=== PATIENT | female | born 1955 | race Caucasian/White ===

== ENCOUNTER 2023-10-21 15:11 | Observation (INO) | payer MEDICARE, OTHER ==
--- NOTE | 2023-10-21 15:49 | ERPHSYRPT ---
- History of Present Illness Time Seen by Provider: 10/21/23 15:30 Source: patient Exam Limitations: no limitations Physician History: Patient here for evaluation of syncope paramedics were called to the scene and she was noted to be weak and had a syncopal episodes and route to [facility] she was then brought here for evaluation, She denies any other complaints at this time Witnessed: other (paramedics) Prior Episodes: single episode today Timing/Duration: today Precipitating Factors: none Context: sitting Loss of Consciousness: brief (seconds) Allergies/Adverse Reactions: acetaminophen [From Vicodin] Allergy (Verified 10/21/23 15:42) hydrocodone [From Vicodin] Allergy (Verified 10/21/23 15:42) - Past Medical History Pertinent Past Medical History: Yes Neurological History: No Pertinent History ENT History: No Pertinent History Cardiac History: Coronary Artery Disease, High Cholesterol, Hypertension, Myocardial Infarction ([place]) Respiratory History: No Pertinent History Endocrine Medical History: No Pertinent History Musculoskeletal History: No Pertinent History - Past Surgical History Past Surgical History: Yes Cardiac: Cardiac Catheterization, Cardiac Stent Musculoskeletal: Orthopedic Surgery - Review of Systems Eyes: No Symptoms Ears, Nose, & Throat: No Symptoms Respiratory: No Symptoms Cardiac: Syncope Abdominal/Gastrointestinal: No Symptoms Genitourinary Symptoms: No Symptoms Musculoskeletal: No Symptoms Skin: No Symptoms Neurological: Dizziness Psychological: No Symptoms Endocrine: No Symptoms Hematologic/Lymphatic: No Symptoms Immunological/Allergic: No Symptoms All Other Systems: Reviewed and Negative Physical Exam - Nursing Vital Signs Nursing Vital Signs: Initial Vital Signs Pulse Rate 65 10/21/23 15:34 Respiratory Rate 23 10/21/23 15:34 Blood Pressure 136/70 10/21/23 15:34 O2 Sat by Pulse Oximetry 100 10/21/23 15:34 Pain Scale Pain Intensity 3 - [place] Coma Scale Best Eye Response ([place]): (2) open to pain Best Verbal Response ([place]): (4) confused conversation Best Motor Response ([place]): (6) obeys commands [place] Total: 12 - Physical Exam General Appearance: no apparent distress, lethargy Eye Exam: bilateral eye: normal inspection Ears, Nose, Throat Exam: normal ENT inspection Neck Exam: normal inspection Respiratory: normal breath sounds Cardiovascular: regular rate/rhythm Gastrointestinal: soft, normal bowel sounds Extremity Exam: normal inspection Mental Status: lethargy, unresponsive SpO2: 100 Ordered Tests: Active Orders 24 hr Category Date Time Status Cervical Collar Application STAT Care 10/21/23 15:14 Active CERVICAL SPINE WO CONTRAST [CT] Stat Exams 10/21/23 15:14 Completed CHEST 1 VIEW (PORTABLE) Stat Exams 10/21/23 15:47 Completed HEAD WITHOUT CONTRAST [CT] Stat Exams 10/21/23 15:12 Completed CBC W DIFF Stat Lab 10/21/23 18:00 Completed CMP Stat Lab 10/21/23 15:46 Completed ETHYL ALCOHOL Stat Lab 10/21/23 15:46 Completed TROPONIN Q4H Lab 10/21/23 18:00 Received TROPONIN Q4H Lab 10/21/23 22:00 Ordered UA W/RFX UR CULTURE Stat Lab 10/21/23 16:55 Completed Medication Summary Discontinued Medications Generic Name Dose Route Start Last Admin Trade Name Sriram PRN Reason Stop Dose Admin Sodium Chloride 1,000 mls @ 999 mls/hr 10/21/23 15:46 10/21/23 17:31 Sodium Chloride 0.9% 1000 Ml IV 10/21/23 16:46 Infused .Q1H1M STA Infusion Sodium Chloride Confirm 10/21/23 16:13 Sodium Chloride 0.9% 1000 Ml Administered 10/21/23 16:14 Dose 1,000 mls @ ud .ROUTE .STK-MED ONE Naloxone HCl 0.4 mg 10/21/23 15:46 10/21/23 16:12 Naloxone Hcl 0.4 Mg/Ml Ml IV 10/21/23 15:47 Not Given STAT ONE Lab/Rad Data: Laboratory Result Diagrams 10/21/23 18:00 10/21/23 15:46 Laboratory Results 10/21/23 10/21/23 10/21/23 Range/Units 18:00 16:55 15:46 WBC 11.4 H (3.98-10.04) x10^3/uL RBC 4.21 (3.93-5.22) x10^6/uL Hgb 13.2 (11.2-15.7) g/dL Hct 39.8 (34.1-44.9) % MCV 94.5 (79.4-94.8) fL MCH 31.4 (25.6-32.2) pg MCHC 33.2 (32.2-35.5) g/dL RDW 13.6 (11.7-14.4) % Plt Count 248 (182-369) x10^3/uL MPV 10.3 (9.4-12.3) fL Gran % 81.5 H (34.0-71.1) % Immature Gran % (Auto) 0.4 (0.001-0.429) % Nucleat RBC Rel Count 0.0 (0.00-0.2) % Eos # (Auto) 0.07 (0.04-0.36) x10^3/uL Immature Gran # (Auto) 0.04 H (0.001-0.031) x10^3u/L Absolute Lymphs (auto) 1.59 (1.18-3.74) x10^3/uL Absolute Monos (auto) 0.36 (0.24-0.86) x10^3/uL Absolute Nucleated RBC 0.00 (0.00-0.012) x10^3u/L Lymphocytes % 13.9 L (19.3-51.7) % Monocytes % 3.2 L (4.7-12.5) % Eosinophils % 0.6 L (0.7-5.8) % Basophils % 0.4 (0.1-1.2) % Absolute Granulocytes 9.31 H (1.56-6.13) x10^3/uL Basophils # 0.05 (0.01-0.08) x10^3/uL Sodium 139 (135-145) mmol/L Potassium 4.4 (3.5-5.1) mmol/L Chloride 110 H (98-107) mmol/L Carbon Dioxide 21 L (22-30) mmol/L Anion Gap 11.9 (5-15) MEQ/L BUN 22 H (7-17) mg/dL Creatinine 0.85 (0.52-1.04) mg/dL Estimated GFR 75.5 ML/MIN Glucose 110 H (74-106) mg/dL Calcium 9.8 (8.4-10.2) mg/dL Total Bilirubin 0.70 (0.2-1.3) mg/dL AST 37 H (14-36) U/L ALT 21 (0-35) U/L Alkaline Phosphatase 121 (38-126) U/L Serum Total Protein 7.3 (6.3-8.2) g/dL Albumin 4.1 (3.5-5.0) g/dL Urine Color Yellow (Yellow) Urine Appearance Clear (Clear) Urine pH 7.0 (4.6-8.0) Ur Specific [place] 1.015 (1.005-1.030) Urine Protein Trace A (Negative) Urine Glucose (UA) Negative (Negative) mg/dL Urine Ketones 15 A (Negative) Urine Blood Negative (Negative) Urine Nitrite Negative (Negative) Urine Bilirubin Negative (Negative) Urine Urobilinogen 0.2 (0.2) mg/dL Ur Leukocyte Esterase Negative (Negative) U Hyaline Cast (Auto) NONE SEEN (0-2) /LPF Urine Microscopic RBC 0-2 (0-5) /HPF Urine Microscopic WBC 0-2 (0-5) /HPF Ur Epithelial Cells None Seen (None Seen) /HPF Urine Bacteria None Seen (None Seen) /HPF Urine Culture Reflexed NO (NO) Ethyl Alcohol < 10 (0-10) mg/dL - Progress Progress Note: Patient was seen and evaluated for syncope she was brought here via ambulance she was taken straight back for head CT and CT C-spine. these were within normal limits labs were drawn she was given IV fluids. she was observed and returned back to baseline. Patient was informed of the need for admission for further observation she is agreeable she has no further questions at this time I spoke to the hospitalist who will admit the patient he was updated with the patient's lab results and CT results he was informed that the patient did use some marijuana prior to this episode and this might be related to her drug use however the patient denies any active complaints at this time 10/21/23 18:26 Medical Desision Making - Discussion of managment Care discussed with:: hospitalist Agreed on:: decision to admit, place in obs - Departure Departure Disposition: Observation Clinical Impression: Syncope Condition: Stable Critical Care Time: Yes Critical Care Time(excluding separately billable procedures): Critical 30-74 mins
[2023-10-21] MEDS: Narcan 0.4 MG/ML IV ONE (16:12)
[2023-10-21] MEDS ORDERED: Sodium Chloride 0.9% 1000 ML 1,000 ML ONE (16:13)
[2023-10-21 16:14] LABS: ALBUMIN 4.1 g/dL (3.5-5.0); ALKALINE PHOSPHATASE 121 U/L (38-126); ANION GAP 11.9 MEQ/L (5-15); BLOOD UREA NITROGEN 22 mg/dL (7-17); CHLORIDE 110 mmol/L (98-107); Calcium 9.8 mg/dL (8.4-10.2); Carbon Dioxide 21 mmol/L (22-30); Creatinine 1 0.85 mg/dL (0.52-1.04); EST GLOMERULAR FILTRATION RATE 75.5 ML/MIN; ETHYL ALCOHOL < 10 mg/dL (0-10); Glucose 110 mg/dL (74-106); Potassium 4.4 mmol/L (3.5-5.1); SGOT/AST 37 U/L (14-36); SGPT/ALT 21 U/L (0-35); SODIUM 139 mmol/L (135-145); Total Protein 7.3 g/dL (6.3-8.2)
[2023-10-21] MEDS: Sodium Chloride 0.9% 1000 ML 1,000 ML IV STA (16:21)
--- NOTE | 2023-10-21 16:25 | XRAY ---
Indication: Syncope. Status post fall. Multiple contiguous images obtained through the head without contrast. Comparison: None Global atrophy out of proportion to patient's age. No acute intracranial hemorrhage, abnormal extra-axial fluid collection, or mass effect. Fourth ventricle is midline without hydrocephalus. [place]-white matter to fissuration preserved. Bony calvarium intact. Visualized paranasal sinuses and mastoid air cells are clear. Impression: Global atrophy out of proportion to patient's age either developmental, metabolic, or nutritional in etiology. No acute intracranial abnormalities.
--- NOTE | 2023-10-21 16:25 | XRAY ---
Indication: Chest pain. Comparison: None Portable chest demonstrates normal heart and lungs. Bony thorax demonstrates osteopenia, mild degenerative changes, and nondisplaced healing lateral left 6 rib fracture.
--- NOTE | 2023-10-21 16:29 | XRAY ---
Indication: Syncope. Status post fall. Multiple contiguous axial images obtained through the cervical spine. Sagittal and coronal reformatted images obtained. Comparison: None Axial images negative for acute fracture, suspicious bony lesions, or spinal canal stenosis. Mild C5-C7 degenerative endplate spurring. Mild degenerative changes left T1 costovertebral articulation. Sagittal and coronal reformatted images demonstrates patient rotated to the right. Normal cervical lordosis. Mild C5-C7 disc space narrowing. No acute compression fracture, supposition, or jumped facet. Normal appearing craniocervical junction. Visualized noncontrasted soft tissues are unremarkable. Impression: C5-T1 degenerative changes. Negative acute fracture/subluxation.
[2023-10-21 17:13] LABS: Appearance Clear (Clear); Bacteria None Seen /HPF (None Seen); Bilirubin Negative (Negative); Blood Negative (Negative); Epithelial Cells None Seen /HPF (None Seen); Glucose, Urine Negative (Negative); Hyaline Casts NONE SEEN /LPF (0-2); Ketones 15 (Negative); Leukocyte Esterase Negative (Negative); Nitrite Negative (Negative); Protein,Urine Dip Trace (Negative); RBC 0-2 /HPF (0-5); Specific Gravity 1.015 (1.005-1.030); Urobilinogen 0.2 mg/dL (0.2); WBC 0-2 /HPF (0-5)
[2023-10-21 17:23] LABS: ADD URINE CULTURE? NO (NO)
[2023-10-21 18:02] LABS: Absolute Neutrophil Ct (ANC) 9.31 x10^3/uL (1.56-6.13); BASOPHIL % 0.4 % (0.1-1.2); Basophil (Absolute #) 0.05 x10^3/uL (0.01-0.08); Eosinophil % 0.6 % (0.7-5.8); Eosinophil (Absolute #) 0.07 x10^3/uL (0.04-0.36); Hematocrit 39.8 % (34.1-44.9); Hemoglobin 13.2 g/dL (11.2-15.7); IMMATURE GRAN # 0.04 x10^3u/L (0.001-0.031); IMMATURE GRAN % 0.4 % (0.001-0.429); Lymphocyte (Absolute #) 1.59 x10^3/uL (1.18-3.74); Lymphocytes % 13.9 % (19.3-51.7); Mean Cell Volume 94.5 fL (79.4-94.8); Mean Corpuscular Hemoglobin 31.4 pg (25.6-32.2); Mean Corpuscular Hgb Concent. 33.2 g/dL (32.2-35.5); Mean Platelet Volume 10.3 fL (9.4-12.3); Monocyte (Absolute #) 0.36 x10^3/uL (0.24-0.86); Monocytes % 3.2 % (4.7-12.5); Neutrophil % 81.5 % (34.0-71.1); Platelet Count 248 x10^3/uL (182-369); Red Blood Count 4.21 x10^6/uL (3.93-5.22); Red Cell Distribution Width 13.6 % (11.7-14.4); White Blood Count 11.4 x10^3/uL (3.98-10.04)
[2023-10-21 19:01] LABS: Amphetamine,Urine NEGATIVE (NEGATIVE); Barbiturate,Urine NEGATIVE (NEGATIVE); Benzodiazepine,Urine POSITIVE (NEGATIVE); Cocaine,Urine NEGATIVE (NEGATIVE); Methadone,Urine NEGATIVE (NEGATIVE); Opiate,Urine NEGATIVE (NEGATIVE); PCP,Urine NEGATIVE (NEGATIVE); THC,Urine POSITIVE (NEGATIVE)
[2023-10-21] MEDS ORDERED: Docusate Sodium 100 MG PO PRN (19:54)
[2023-10-21] MEDS ORDERED: Zofran 4 MG/2 ML VIAL IV PRN (19:55)
[2023-10-21] MEDS ORDERED: TYLENOL 325 MG PO PRN (19:55)
[2023-10-21] MEDS ORDERED: NON-FORMULARY ITEM (Atorvastatin Calcium [Atorvastatin Calcium] 20 MG Tablet) PO SCH (20:00)
[2023-10-21] MEDS: Sodium Chloride 0.9% 1000 ML 1,000 ML IV SCH (20:05)
--- NOTE | 2023-10-21 20:17 | PCM.HP ---
History of Present Illness - Chief Complaint Chief Complaint: NEAR SYNCOPE Date: 10/21/23 History of Present Illness: is a 68 year old female with a history of HTN (follows with Dr. Duane Chou) who presents with altered mental status and syncope, both of which resolved. The patient had used marijuana earlier today but this was not any different than other times, in terms of the type of product used. The patient were called to the scene for generalized weakness and syncopal episodes, and was witnessed by paramedics to have another episode in transit. The patient denies chest pain or any discomfort. She recently had a pneumonia treated one month ago. The ED workup was unremarkable but upon initial evaluation in the ED she was noted to be obtunded. The mental status changes subsequently resolved. At the time of my evaluation, she is oriented and comfortable. Her 2 sons are at bedside during my assessment. - Review of Systems Constitutional: Lethargy Eyes: No Symptoms Ears, Nose, & Throat: No Symptoms Respiratory: No Symptoms Cardiac: Syncope Abdominal/Gastrointestinal: No Symptoms Genitourinary Symptoms: No Symptoms Musculoskeletal: No Symptoms Skin: No Symptoms Neurological: No Symptoms Psychological: No Symptoms Endocrine: No Symptoms Hematologic/Lymphatic: No Symptoms Immunological/Allergic: No Symptoms All Other Systems: Reviewed and Negative Medications & Allergies Home Medications: Home Medication List ALPRAZolam 0.25 MG [xanAX 0.25 MG] 0.25 mg PO TID PRN 10/21/23 [History Confirmed 10/21/23] Atorvastatin Calcium 20 mg PO DAILY PRN 10/21/23 [History Confirmed 10/21/23] Calcium Carbonate/Vitamin D3 [Calcium 600-Vit D3 400 Tablet] 1 each PO DAILY 10/21/23 [History Confirmed 10/21/23] Carvedilol 3.125 mg [Coreg 3.125 MG] 3.125 mg PO BID 10/21/23 [History Confirmed 10/21/23] Clopidogrel Bisulfate [Clopidogrel] 75 mg PO DAILY 10/21/23 [History Confirmed 10/21/23] Docusate Sodium [Colace] 100 mg PO DAILY PRN PRN 10/21/23 [History Confirmed 10/21/23] Escitalopram Oxalate [Lexapro] 10 mg PO HS 10/21/23 [History Confirmed 10/21/23] Triamcinolone 0.1% Cream [Kenalog 0.1% Cream 15 gm] 15 gm TP BID 10/21/23 [History Confirmed 10/21/23] Ubidecarenone/Vit E Acet [Co Q-10 100 mg Softgel] 200 mg PO DAILY 10/21/23 [History Confirmed 10/21/23] terbinafine HCL [Terbinafine HCl] 250 mg PO HS 10/21/23 [History Confirmed 10/21/23] Allergies/Adverse Reactions: Allergies Allergy/AdvReac Type Severity Reaction Status Date / Time acetaminophen [From Vicodin] Allergy Verified 10/21/23 15:42 hydrocodone [From Vicodin] Allergy Verified 10/21/23 15:42 - Past Medical History Past Medical History: Yes Neurological History: No Pertinent History ENT History: No Pertinent History Cardiac History: Coronary Artery Disease, High Cholesterol, Hypertension, Myocardial Infarction ([place]) Respiratory History: No Pertinent History Endocrine Medical History: No Pertinent History Musculoskelatal History: No Pertinent History - Past Surgical History Past Surgical History: Yes Cardiac History: Cardiac Catheterization, Cardiac Stent Musculskeletal Surgical Hx: Orthopedic Surgery - Social History Smoking Status: Former smoker Exposure to second hand smoke: No Alcohol: Rarely Drug Use: marijuana - Social Determinants of Health Will the patient participate in the screening: Yes Do you worry about a steady place to live?: No Do you have any problems with any of the following?: No known problems In the past 12 months,have you had to go without utilities?: No Have you or anyone in your house had to go without enough: No Transportation Issues: No Has anyone in your support network made you feel unsafe?: No Does the patient want assistance with any of the above?: No - Physical Exam Vital Signs: Vital Signs - 24 hr Temp Pulse Resp BP BP Pulse Ox 10/21/23 19:42 96.4 F 78 16 136/70 100 10/21/23 18:28 100 10/21/23 16:53 70 21 161/72 95 10/21/23 16:52 70 18 98 10/21/23 16:50 79 23 10/21/23 16:40 78 21 94 L 10/21/23 16:30 74 15 98 10/21/23 16:22 75 18 92 L 10/21/23 15:34 65 23 136/70 100 General Appearance: no apparent distress, alert Neurologic Exam: alert, oriented x 3, cooperative, agriculture specialist II-XII nml as tested, normal mood/affect, nml cerebellar function Eye Exam: PERRL/EOMI, eyes nml inspection Ears, Nose, Throat Exam: normal ENT inspection Neck Exam: normal inspection, non-tender, supple, full range of motion Respiratory Exam: normal breath sounds, lungs clear Cardiovascular Exam: regular rate/rhythm, normal heart sounds Gastrointestinal/Abdomen Exam: soft, normal bowel sounds Back Exam: normal range of motion Extremity Exam: normal inspection, normal range of motion Skin Exam: normal color Results - Labs Lab/Micro Results: Lab Results-Last 24 Hours 10/21/23 10/21/23 10/21/23 Range/Units 15:46 16:55 18:00 WBC 11.4 H (3.98-10.04) x10^3/uL RBC 4.21 (3.93-5.22) x10^6/uL Hgb 13.2 (11.2-15.7) g/dL Hct 39.8 (34.1-44.9) % MCV 94.5 (79.4-94.8) fL MCH 31.4 (25.6-32.2) pg MCHC 33.2 (32.2-35.5) g/dL RDW 13.6 (11.7-14.4) % Plt Count 248 (182-369) x10^3/uL MPV 10.3 (9.4-12.3) fL Gran % 81.5 H (34.0-71.1) % Immature Gran % (Auto) 0.4 (0.001-0.429) % Nucleat RBC Rel Count 0.0 (0.00-0.2) % Eos # (Auto) 0.07 (0.04-0.36) x10^3/uL Immature Gran # (Auto) 0.04 H (0.001-0.031) x10^3u/L Absolute Lymphs (auto) 1.59 (1.18-3.74) x10^3/uL Absolute Monos (auto) 0.36 (0.24-0.86) x10^3/uL Absolute Nucleated RBC 0.00 (0.00-0.012) x10^3u/L Lymphocytes % 13.9 L (19.3-51.7) % Monocytes % 3.2 L (4.7-12.5) % Eosinophils % 0.6 L (0.7-5.8) % Basophils % 0.4 (0.1-1.2) % Absolute Granulocytes 9.31 H (1.56-6.13) x10^3/uL Basophils # 0.05 (0.01-0.08) x10^3/uL Sodium 139 (135-145) mmol/L Potassium 4.4 (3.5-5.1) mmol/L Chloride 110 H (98-107) mmol/L Carbon Dioxide 21 L (22-30) mmol/L Anion Gap 11.9 (5-15) MEQ/L BUN 22 H (7-17) mg/dL Creatinine 0.85 (0.52-1.04) mg/dL Estimated GFR 75.5 ML/MIN Glucose 110 H (74-106) mg/dL Calcium 9.8 (8.4-10.2) mg/dL Total Bilirubin 0.70 (0.2-1.3) mg/dL AST 37 H (14-36) U/L ALT 21 (0-35) U/L Alkaline Phosphatase 121 (38-126) U/L Troponin I (0.000-0.033) ng/mL Serum Total Protein 7.3 (6.3-8.2) g/dL Albumin 4.1 (3.5-5.0) g/dL Urine Color Yellow (Yellow) Urine Appearance Clear (Clear) Urine pH 7.0 (4.6-8.0) Ur Specific [place] 1.015 (1.005-1.030) Urine Protein Trace A (Negative) Urine Glucose (UA) Negative (Negative) mg/dL Urine Ketones 15 A (Negative) Urine Blood Negative (Negative) Urine Nitrite Negative (Negative) Urine Bilirubin Negative (Negative) Urine Urobilinogen 0.2 (0.2) mg/dL Ur Leukocyte Esterase Negative (Negative) U Hyaline Cast (Auto) NONE SEEN (0-2) /LPF Urine Microscopic RBC 0-2 (0-5) /HPF Urine Microscopic WBC 0-2 (0-5) /HPF Ur Epithelial Cells None Seen (None Seen) /HPF Urine Bacteria None Seen (None Seen) /HPF Urine Culture Reflexed NO (NO) Urine Opiates Level (NEGATIVE) Ur Methadone (NEGATIVE) Urine Barbiturates (NEGATIVE) Ur Phencyclidine (PCP) (NEGATIVE) Urine Amphetamine (NEGATIVE) U Benzodiazepine Level (NEGATIVE) Urine Cocaine (NEGATIVE) Urine Marijuana (THC) (NEGATIVE) Ethyl Alcohol < 10 (0-10) mg/dL 10/21/23 10/21/23 Range/Units 18:00 18:30 WBC (3.98-10.04) x10^3/uL RBC (3.93-5.22) x10^6/uL Hgb (11.2-15.7) g/dL Hct (34.1-44.9) % MCV (79.4-94.8) fL MCH (25.6-32.2) pg MCHC (32.2-35.5) g/dL RDW (11.7-14.4) % Plt Count (182-369) x10^3/uL MPV (9.4-12.3) fL Gran % (34.0-71.1) % Immature Gran % (Auto) (0.001-0.429) % Nucleat RBC Rel Count (0.00-0.2) % Eos # (Auto) (0.04-0.36) x10^3/uL Immature Gran # (Auto) (0.001-0.031) x10^3u/L Absolute Lymphs (auto) (1.18-3.74) x10^3/uL Absolute Monos (auto) (0.24-0.86) x10^3/uL Absolute Nucleated RBC (0.00-0.012) x10^3u/L Lymphocytes % (19.3-51.7) % Monocytes % (4.7-12.5) % Eosinophils % (0.7-5.8) % Basophils % (0.1-1.2) % Absolute Granulocytes (1.56-6.13) x10^3/uL Basophils # (0.01-0.08) x10^3/uL Sodium (135-145) mmol/L Potassium (3.5-5.1) mmol/L Chloride (98-107) mmol/L Carbon Dioxide (22-30) mmol/L Anion Gap (5-15) MEQ/L BUN (7-17) mg/dL Creatinine (0.52-1.04) mg/dL Estimated GFR ML/MIN Glucose (74-106) mg/dL Calcium (8.4-10.2) mg/dL Total Bilirubin (0.2-1.3) mg/dL AST (14-36) U/L ALT (0-35) U/L Alkaline Phosphatase (38-126) U/L Troponin I < 0.012 (0.000-0.033) ng/mL Serum Total Protein (6.3-8.2) g/dL Albumin (3.5-5.0) g/dL Urine Color (Yellow) Urine Appearance (Clear) Urine pH (4.6-8.0) Ur Specific [place] (1.005-1.030) Urine Protein (Negative) Urine Glucose (UA) (Negative) mg/dL Urine Ketones (Negative) Urine Blood (Negative) Urine Nitrite (Negative) Urine Bilirubin (Negative) Urine Urobilinogen (0.2) mg/dL Ur Leukocyte Esterase (Negative) U Hyaline Cast (Auto) (0-2) /LPF Urine Microscopic RBC (0-5) /HPF Urine Microscopic WBC (0-5) /HPF Ur Epithelial Cells (None Seen) /HPF Urine Bacteria (None Seen) /HPF Urine Culture Reflexed (NO) Urine Opiates Level NEGATIVE (NEGATIVE) Ur Methadone NEGATIVE (NEGATIVE) Urine Barbiturates NEGATIVE (NEGATIVE) Ur Phencyclidine (PCP) NEGATIVE (NEGATIVE) Urine Amphetamine NEGATIVE (NEGATIVE) U Benzodiazepine Level POSITIVE A (NEGATIVE) Urine Cocaine NEGATIVE (NEGATIVE) Urine Marijuana (THC) POSITIVE A (NEGATIVE) Ethyl Alcohol (0-10) mg/dL - Radiology Impressions Radiology Exams & Impressions: Radiology Procedures Category Date Time Status CAROTID BILATERAL [US] Routine Exams 10/21/23 19:59 Ordered CERVICAL SPINE WO CONTRAST [CT] Stat Exams 10/21/23 15:14 Completed CHEST 1 VIEW (PORTABLE) Stat Exams 10/21/23 15:47 Completed ECHO W/2D AND DOPPLER [US] Routine Exams 10/21/23 19:57 Ordered HEAD WITHOUT CONTRAST [CT] Stat Exams 10/21/23 15:12 Completed Assessment/Plan (1) Near syncope Current Visit: Yes Status: Acute Assessment & Plan: Serial troponins on telemetry. No chest pain. AM orthostatics. PT eval. Carotid US and ECHO. (2) Dehydration Current Visit: Yes Status: Acute Assessment & Plan: IV fluids. AM orthostatics. Code(s): E86.0 - DEHYDRATION (3) Leukocytosis Current Visit: Yes Status: Acute Assessment & Plan: No symptoms or signs of infection. CXR and UA unremarkable. Code(s): D72.829 - ELEVATED WHITE BLOOD CELL COUNT, UNSPECIFIED (4) Altered mental status Current Visit: Yes Status: Acute Assessment & Plan: Possible marijuana effect, though this was not the patient's first time using. Will hold the patient's home Xanax. Mental status is at baseline currently. Will monitor. Code(s): R41.82 - ALTERED MENTAL STATUS, UNSPECIFIED Telemedicine Encounter - Telemedicine Encounter Telemedicine Encounter: "The entirety of this encounter was performed via Telemedicine" This visit was performed using real-time audio and video connection between my location and thepatients locationwith the assistance of a surrogateat the patients location. Written or verbal consent was obtained from the patient/guardian to perform this visit using[facility] technology. Any patient questions regarding the telemedicine interaction were answered.
[2023-10-21] MEDS ORDERED: Lexapro ONE (21:49)
[2023-10-21] MEDS: Coreg 3.125 MG PO SCH (21:51)
[2023-10-21] MEDS: Lexapro PO SCH (21:51)
[2023-10-21] MEDS ORDERED: Lexapro PO SCH (22:00)
[2023-10-21] MEDS: KENALOG 0.1% CREAM 15 GM TP SCH (23:03)
[2023-10-21] MEDS: lamISIL 250 MG PO SCH (23:04)
[2023-10-22 04:26] LABS: Absolute Neutrophil Ct (ANC) 8.07 x10^3/uL (1.56-6.13); BASOPHIL % 0.5 % (0.1-1.2); Basophil (Absolute #) 0.06 x10^3/uL (0.01-0.08); Eosinophil (Absolute #) 0.12 x10^3/uL (0.04-0.36); Hematocrit 36.2 % (34.1-44.9); Hemoglobin 11.9 g/dL (11.2-15.7); IMMATURE GRAN # 0.03 x10^3u/L (0.001-0.031); IMMATURE GRAN % 0.3 % (0.001-0.429); Lymphocyte (Absolute #) 2.55 x10^3/uL (1.18-3.74); Mean Cell Volume 94.8 fL (79.4-94.8); Mean Corpuscular Hemoglobin 31.2 pg (25.6-32.2); Mean Corpuscular Hgb Concent. 32.9 g/dL (32.2-35.5); Mean Platelet Volume 10.8 fL (9.4-12.3); Monocyte (Absolute #) 0.76 x10^3/uL (0.24-0.86); Monocytes % 6.6 % (4.7-12.5); Neutrophil % 69.6 % (34.0-71.1); Platelet Count 225 x10^3/uL (182-369); Red Blood Count 3.82 x10^6/uL (3.93-5.22); Red Cell Distribution Width 13.7 % (11.7-14.4); White Blood Count 11.6 x10^3/uL (3.98-10.04)
[2023-10-22 04:50] LABS: ALBUMIN 3.6 g/dL (3.5-5.0); ANION GAP 8.3 MEQ/L (5-15); BILIRUBIN,TOTAL 0.7 mg/dL (0.2-1.3); Calcium 8.6 mg/dL (8.4-10.2); Creatinine 1 0.72 mg/dL (0.52-1.04); EST GLOMERULAR FILTRATION RATE 92.2 ML/MIN; Potassium 3.8 mmol/L (3.5-5.1); Total Protein 6.7 g/dL (6.3-8.2)
[2023-10-22] MEDS ORDERED: MEDICATION INTERVENTION MC SCH (07:00)
[2023-10-22] MEDS ORDERED: ZOCOR 20MG PO PRN (07:00)
[2023-10-22] MEDS ORDERED: NON-FORMULARY ITEM (Ubidecarenone/Vit E Acet [Co Q-10 100 Mg Softgel] 1 EACH Capsule) PO SCH (10:00)
[2023-10-22] MEDS ORDERED: NON-FORMULARY ITEM (Calcium Carbonate/Vitamin D3 [Calcium 600-Vit D3 400 Tablet] 1 EACH Ta PO SCH (10:00)
--- NOTE | 2023-10-22 11:06 | PCM.DS ---
Discharge Summary Date of Admission: 10/21/23 18:40 Date of Discharge: 10/22/23 Admitting Physician: CHYNA KOVACS MD Primary Care Provider: ANDREW GANDHI DO Allergies Allergies acetaminophen [From Vicodin] Allergy (Verified 10/21/23 15:42) hydrocodone [From Vicodin] Allergy (Verified 10/21/23 15:42) Hospital Summary - Hospital Course Hospital Course: 10/22/23 is a 68 year old female with a history of HTN (follows with Dr. Duane Chou), CAD, hyperlipidemia, NC, and anxiety. She presented on 10/21/23 with altered mental status and syncope, in which she feel and hit her forehead and fell on her knees. The patient had used marijuana earlier today but this was not any different than other times, in terms of the type of product used. She uses marijuana daily. EMS was called to the scene for generalized weakness and syncopal episodes, and was witnessed by paramedics to have another episode in transit. The patient denies chest pain or any discomfort. She recently had a pneumonia treated one month ago. The ED workup was unremarkable but upon initial evaluation in the ED she was noted to be obtunded. The mental status changes bhakta bsequently resolved. CT head, cervical spine, and chest CXR non-concerning for acute issue. Orthostats non-concerning this AM. Echo and carotid doppler pending. Pt wanting to d/c today as she is feeling better. If results from testing today ok may d/c. - Vitals & Intake/Output Vital Signs: Vital Signs Temperature 97.3 F 10/22/23 07:29 Pulse Rate 58 L 10/22/23 07:29 Respiratory Rate 17 10/22/23 07:29 Blood Pressure 132/64 10/22/23 07:29 O2 Sat by Pulse Oximetry 93 L 10/22/23 07:29 Intake & Output: Intake & Output 10/19/23 10/20/23 10/21/23 10/22/23 11:59 11:59 11:59 11:59 Intake Total 1096 Balance 1096 Weight 82.6 kg - Lab Result Diagrams: 10/22/23 04:10 10/22/23 04:10 Lab Results-Last 24 Hrs: Lab Results-Last 24 Hours 10/21/23 10/21/23 10/21/23 Range/Units 15:46 16:55 18:00 WBC 11.4 H (3.98-10.04) x10^3/uL RBC 4.21 (3.93-5.22) x10^6/uL Hgb 13.2 (11.2-15.7) g/dL Hct 39.8 (34.1-44.9) % MCV 94.5 (79.4-94.8) fL MCH 31.4 (25.6-32.2) pg MCHC 33.2 (32.2-35.5) g/dL RDW 13.6 (11.7-14.4) % Plt Count 248 (182-369) x10^3/uL MPV 10.3 (9.4-12.3) fL Gran % 81.5 H (34.0-71.1) % Immature Gran % (Auto) 0.4 (0.001-0.429) % Nucleat RBC Rel Count 0.0 (0.00-0.2) % Eos # (Auto) 0.07 (0.04-0.36) x10^3/uL Immature Gran # (Auto) 0.04 H (0.001-0.031) x10^3u/L Absolute Lymphs (auto) 1.59 (1.18-3.74) x10^3/uL Absolute Monos (auto) 0.36 (0.24-0.86) x10^3/uL Absolute Nucleated RBC 0.00 (0.00-0.012) x10^3u/L Lymphocytes % 13.9 L (19.3-51.7) % Monocytes % 3.2 L (4.7-12.5) % Eosinophils % 0.6 L (0.7-5.8) % Basophils % 0.4 (0.1-1.2) % Absolute Granulocytes 9.31 H (1.56-6.13) x10^3/uL Basophils # 0.05 (0.01-0.08) x10^3/uL Sodium 139 (135-145) mmol/L Potassium 4.4 (3.5-5.1) mmol/L Chloride 110 H (98-107) mmol/L Carbon Dioxide 21 L (22-30) mmol/L Anion Gap 11.9 (5-15) MEQ/L BUN 22 H (7-17) mg/dL Creatinine 0.85 (0.52-1.04) mg/dL Estimated GFR 75.5 ML/MIN Glucose 110 H (74-106) mg/dL Calcium 9.8 (8.4-10.2) mg/dL Total Bilirubin 0.70 (0.2-1.3) mg/dL AST 37 H (14-36) U/L ALT 21 (0-35) U/L Alkaline Phosphatase 121 (38-126) U/L Troponin I (0.000-0.033) ng/mL Serum Total Protein 7.3 (6.3-8.2) g/dL Albumin 4.1 (3.5-5.0) g/dL Urine Color Yellow (Yellow) Urine Appearance Clear (Clear) Urine pH 7.0 (4.6-8.0) Ur Specific [place] 1.015 (1.005-1.030) Urine Protein Trace A (Negative) Urine Glucose (UA) Negative (Negative) mg/dL Urine Ketones 15 A (Negative) Urine Blood Negative (Negative) Urine Nitrite Negative (Negative) Urine Bilirubin Negative (Negative) Urine Urobilinogen 0.2 (0.2) mg/dL Ur Leukocyte Esterase Negative (Negative) U Hyaline Cast (Auto) NONE SEEN (0-2) /LPF Urine Microscopic RBC 0-2 (0-5) /HPF Urine Microscopic WBC 0-2 (0-5) /HPF Ur Epithelial Cells None Seen (None Seen) /HPF Urine Bacteria None Seen (None Seen) /HPF Urine Culture Reflexed NO (NO) Urine Opiates Level (NEGATIVE) Ur Methadone (NEGATIVE) Urine Barbiturates (NEGATIVE) Ur Phencyclidine (PCP) (NEGATIVE) Urine Amphetamine (NEGATIVE) U Benzodiazepine Level (NEGATIVE) Urine Cocaine (NEGATIVE) Urine Marijuana (THC) (NEGATIVE) Ethyl Alcohol < 10 (0-10) mg/dL 10/21/23 10/21/23 10/21/23 Range/Units 18:00 18:30 21:55 WBC (3.98-10.04) x10^3/uL RBC (3.93-5.22) x10^6/uL Hgb (11.2-15.7) g/dL Hct (34.1-44.9) % MCV (79.4-94.8) fL MCH (25.6-32.2) pg MCHC (32.2-35.5) g/dL RDW (11.7-14.4) % Plt Count (182-369) x10^3/uL MPV (9.4-12.3) fL Gran % (34.0-71.1) % Immature Gran % (Auto) (0.001-0.429) % Nucleat RBC Rel Count (0.00-0.2) % Eos # (Auto) (0.04-0.36) x10^3/uL Immature Gran # (Auto) (0.001-0.031) x10^3u/L Absolute Lymphs (auto) (1.18-3.74) x10^3/uL Absolute Monos (auto) (0.24-0.86) x10^3/uL Absolute Nucleated RBC (0.00-0.012) x10^3u/L Lymphocytes % (19.3-51.7) % Monocytes % (4.7-12.5) % Eosinophils % (0.7-5.8) % Basophils % (0.1-1.2) % Absolute Granulocytes (1.56-6.13) x10^3/uL Basophils # (0.01-0.08) x10^3/uL Sodium (135-145) mmol/L Potassium (3.5-5.1) mmol/L Chloride (98-107) mmol/L Carbon Dioxide (22-30) mmol/L Anion Gap (5-15) MEQ/L BUN (7-17) mg/dL Creatinine (0.52-1.04) mg/dL Estimated GFR ML/MIN Glucose (74-106) mg/dL Calcium (8.4-10.2) mg/dL Total Bilirubin (0.2-1.3) mg/dL AST (14-36) U/L ALT (0-35) U/L Alkaline Phosphatase (38-126) U/L Troponin I < 0.012 < 0.012 (0.000-0.033) ng/mL Serum Total Protein (6.3-8.2) g/dL Albumin (3.5-5.0) g/dL Urine Color (Yellow) Urine Appearance (Clear) Urine pH (4.6-8.0) Ur Specific [place] (1.005-1.030) Urine Protein (Negative) Urine Glucose (UA) (Negative) mg/dL Urine Ketones (Negative) Urine Blood (Negative) Urine Nitrite (Negative) Urine Bilirubin (Negative) Urine Urobilinogen (0.2) mg/dL Ur Leukocyte Esterase (Negative) U Hyaline Cast (Auto) (0-2) /LPF Urine Microscopic RBC (0-5) /HPF Urine Microscopic WBC (0-5) /HPF Ur Epithelial Cells (None Seen) /HPF Urine Bacteria (None Seen) /HPF Urine Culture Reflexed (NO) Urine Opiates Level NEGATIVE (NEGATIVE) Ur Methadone NEGATIVE (NEGATIVE) Urine Barbiturates NEGATIVE (NEGATIVE) Ur Phencyclidine (PCP) NEGATIVE (NEGATIVE) Urine Amphetamine NEGATIVE (NEGATIVE) U Benzodiazepine Level POSITIVE A (NEGATIVE) Urine Cocaine NEGATIVE (NEGATIVE) Urine Marijuana (THC) POSITIVE A (NEGATIVE) Ethyl Alcohol (0-10) mg/dL 10/22/23 10/22/23 Range/Units 04:10 04:10 WBC 11.6 H (3.98-10.04) x10^3/uL RBC 3.82 L (3.93-5.22) x10^6/uL Hgb 11.9 (11.2-15.7) g/dL Hct 36.2 (34.1-44.9) % MCV 94.8 (79.4-94.8) fL MCH 31.2 (25.6-32.2) pg MCHC 32.9 (32.2-35.5) g/dL RDW 13.7 (11.7-14.4) % Plt Count 225 (182-369) x10^3/uL MPV 10.8 (9.4-12.3) fL Gran % 69.6 (34.0-71.1) % Immature Gran % (Auto) 0.3 (0.001-0.429) % Nucleat RBC Rel Count 0.0 (0.00-0.2) % Eos # (Auto) 0.12 (0.04-0.36) x10^3/uL Immature Gran # (Auto) 0.03 (0.001-0.031) x10^3u/L Absolute Lymphs (auto) 2.55 (1.18-3.74) x10^3/uL Absolute Monos (auto) 0.76 (0.24-0.86) x10^3/uL Absolute Nucleated RBC 0.00 (0.00-0.012) x10^3u/L Lymphocytes % 22.0 (19.3-51.7) % Monocytes % 6.6 (4.7-12.5) % Eosinophils % 1.0 (0.7-5.8) % Basophils % 0.5 (0.1-1.2) % Absolute Granulocytes 8.07 H (1.56-6.13) x10^3/uL Basophils # 0.06 (0.01-0.08) x10^3/uL Sodium 138 (135-145) mmol/L Potassium 3.8 (3.5-5.1) mmol/L Chloride 109 H (98-107) mmol/L Carbon Dioxide 24 (22-30) mmol/L Anion Gap 8.3 (5-15) MEQ/L BUN 13 (7-17) mg/dL Creatinine 0.72 (0.52-1.04) mg/dL Estimated GFR 92.2 ML/MIN Glucose 105 (74-106) mg/dL Calcium 8.6 (8.4-10.2) mg/dL Total Bilirubin 0.70 (0.2-1.3) mg/dL AST 32 (14-36) U/L ALT 21 (0-35) U/L Alkaline Phosphatase 102 (38-126) U/L Troponin I (0.000-0.033) ng/mL Serum Total Protein 6.7 (6.3-8.2) g/dL Albumin 3.6 (3.5-5.0) g/dL Urine Color (Yellow) Urine Appearance (Clear) Urine pH (4.6-8.0) Ur Specific [place] (1.005-1.030) Urine Protein (Negative) Urine Glucose (UA) (Negative) mg/dL Urine Ketones (Negative) Urine Blood (Negative) Urine Nitrite (Negative) Urine Bilirubin (Negative) Urine Urobilinogen (0.2) mg/dL Ur Leukocyte Esterase (Negative) U Hyaline Cast (Auto) (0-2) /LPF Urine Microscopic RBC (0-5) /HPF Urine Microscopic WBC (0-5) /HPF Ur Epithelial Cells (None Seen) /HPF Urine Bacteria (None Seen) /HPF Urine Culture Reflexed (NO) Urine Opiates Level (NEGATIVE) Ur Methadone (NEGATIVE) Urine Barbiturates (NEGATIVE) Ur Phencyclidine (PCP) (NEGATIVE) Urine Amphetamine (NEGATIVE) U Benzodiazepine Level (NEGATIVE) Urine Cocaine (NEGATIVE) Urine Marijuana (THC) (NEGATIVE) Ethyl Alcohol (0-10) mg/dL - Radiology Exams Ordered Rad Exams-Entire Visit: Radiology Procedures Category Date Time Status CAROTID BILATERAL [US] Routine Exams 10/22/23 08:00 Ordered CERVICAL SPINE WO CONTRAST [CT] Stat Exams 10/21/23 15:14 Completed CHEST 1 VIEW (PORTABLE) Stat Exams 10/21/23 15:47 Completed ECHO W/2D AND DOPPLER [US] Routine Exams 10/22/23 08:00 Ordered HEAD WITHOUT CONTRAST [CT] Stat Exams 10/21/23 15:12 Completed - Procedures and Test Procedures and Tests throughout Hospitalization: Therapy Orders & Screens 10/21/23 19:55 PT Eval & Treat (MD Order) ONCE Reason for Eval:: NEAR SYNCOPE, ASSESS GAIT AND MOBILITY Diagnosis: NEAR SYNCOPE Discharge Exam General Appearance: no apparent distress, alert Neurologic Exam: alert, oriented x 3, cooperative, normal mood/affect, nml cerebellar function, sensation nml, No motor deficits Eye Exam: PERRL, EOMI, eyes nml inspection Ears, Nose, Throat Exam: normal ENT inspection, pharynx normal, moist mucous membranes Neck Exam: normal inspection, non-tender, supple, full range of motion Respiratory Exam: normal breath sounds, lungs clear, No respiratory distress Cardiovascular Exam: regular rate/rhythm, normal heart sounds Gastrointestinal/Abdomen Exam: soft, No tenderness, No mass Pelvic Exam: deferred Rectal Exam: deferred Back Exam: normal inspection, normal range of motion, No CVA tenderness, No vertebral tenderness Extremity Exam: normal inspection, normal range of motion Skin Exam: normal color, warm, dry Final Diagnosis/Problem List - Final Discharge Diagnosis/Problem (1) Syncope Current Visit: Yes Status: Acute Assessment & Plan: - Serial troponins x3 negative on telemetry. - No chest pain. - AM orthostatics- non-concerning - PT eval. - Carotid US and ECHO- pending - Code(s): R55 - SYNCOPE AND COLLAPSE (2) Altered mental status Current Visit: Yes Status: Acute Assessment & Plan: - Possible marijuana effect, though this was not the patient's first time using. - Will hold the patient's home Xanax. - Mental status is at baseline currently. Will monitor. Code(s): R41.82 - ALTERED MENTAL STATUS, UNSPECIFIED (3) Dehydration Current Visit: Yes Status: Acute Assessment & Plan: -IV fluids. - AM orthostatics- reviewed and non-concerning Code(s): E86.0 - DEHYDRATION (4) Leukocytosis Current Visit: Yes Status: Acute Assessment & Plan: - No symptoms or signs of infection. - CXR and UA unremarkable. Code(s): D72.829 - ELEVATED WHITE BLOOD CELL COUNT, UNSPECIFIED - Discharge Discharge Date: 10/22/23 Disposition: Home, Self-Care Condition: Stable Prescriptions: Continue Carvedilol 3.125 mg [Coreg 3.125 MG] 3.125 mg PO BID terbinafine HCL [Terbinafine HCl] 250 mg PO HS Ubidecarenone/Vit E Acet [Co Q-10 100 mg Softgel] 200 mg PO DAILY Triamcinolone 0.1% Cream [Kenalog 0.1% Cream 15 gm] 15 gm TP BID Escitalopram Oxalate [Lexapro] 10 mg PO HS Docusate Sodium [Colace] 100 mg PO DAILY PRN PRN PRN Reason: Constipation Clopidogrel Bisulfate [Clopidogrel] 75 mg PO DAILY Calcium Carbonate/Vitamin D3 [Calcium 600-Vit D3 400 Tablet] 1 each PO DAILY Atorvastatin Calcium 20 mg PO DAILY PRN ALPRAZolam 0.25 MG [xanAX 0.25 MG] 0.25 mg PO TID PRN PRN Reason: Anxiety Instructions: Syncope (fainting) - Discharge instructions Follow up with: ANDREW GANDHI DO [Primary Care Provider] - 10/30/23 2:00 pm ZOE BAJWA MD [NON-STAFF PHY W/O PRIVILEGES] - 02/25/24 10:45 am
[2023-10-22] MEDS: Calcium 500MG W/Vit D Tablet PO SCH (12:16)
[2023-10-22] MEDS: PLAVIX Tablet PO SCH (12:16)
[2023-10-22] MEDS: ENOXAPARIN SODIUM SQ SCH (12:16)
[2023-10-22 12:22] VITALS: BP 134/66; PULSE 62; RESP 18; TEMP 97.6; O2SAT 98
--- NOTE | 2023-10-22 12:38 | XRAY ---
Indication: Near syncope. Two-dimensional sonogram and color Doppler imaging carotid arteries of the neck performed. Comparison: None Examination right carotid circulation demonstrates punctate calcified plaquing common carotid artery. Mild heterogeneous plaquing carotid bulb. Remaining internal carotid and external carotid arteries widely patent. PSV CCA is 52 cm/s. PSV ICA is 64 cm/s. ICA/CCA ratio is 1.2. Normal antegrade vertebral artery flow. Examination left carotid circulation demonstrates a few punctate plaquing in the common carotid artery. Minimal plaquing carotid bulb. Remaining internal carotid and external carotid arteries are widely patent. PSV CCA is 52 cm/s. PSV ICA is 69 cm/s. ICA/CCA ratio is 1.3. Normal antegrade vertebral artery flow. Impression: Minimal/mild arteriosclerotic plaquing bilaterally. Velocity measurements and ratios negative for hemodynamically significant flow limiting stenosis.
== END 2023-10-22 15:03 | disposition home or self-care (01) ==
LOC: ED 15:11 → MED SURG 18:40
PROVIDERS: ADMIT Internal Medicine; ATTEND Internal Medicine
DX: R55 Syncope and collapse (principal); R41.82 Altered mental status, unspecified; E86.0 Dehydration; I10 Essential (primary) hypertension; D72.829 Elevated white blood cell count, unspecified; I25.10 Atherosclerotic heart disease of native coronary artery without angina pectoris; E78.5 Hyperlipidemia, unspecified; I25.2 Old myocardial infarction; F41.9 Anxiety disorder, unspecified; F12.90 Cannabis use, unspecified, uncomplicated; Z79.899 Other long term (current) drug therapy
CPT/HCPCS: 36415; 70450; 71045; 72125; 80053; 80307; 81001; 82077; 84484; 85025; 93268; 93306; 93880; 96360; 99285; 99291; J1650; Q3014; A9270-GY; G0378